=== PATIENT | female | born 1970 ===

== ENCOUNTER 2024-04-06 12:39 | Observation (INO) | payer OTHER ==
[~2024-04-06] VITALS: Ht 175.3 cm; Wt 99.7 kg
== END 2024-04-07 12:30 | disposition home or self-care (01) ==
LOC: SURS 12:39
PROVIDERS: ADMIT Internal Medicine
PROC: 0DTJ4ZZ Resection of Appendix, Percutaneous Endoscopic Approach (ICD-10-PCS; principal; 2024-04-07)
DX: K35.32 Acute appendicitis with perforation, localized peritonitis, and gangrene, without abscess (principal); Q43.0 Meckel's diverticulum (displaced) (hypertrophic); F17.210 Nicotine dependence, cigarettes, uncomplicated; G89.29 Other chronic pain; M54.9 Dorsalgia, unspecified; Z88.5 Allergy status to narcotic agent; Z79.899 Other long term (current) drug therapy